=== PATIENT | male | born 1940 | race Caucasian/White ===

== ENCOUNTER 2018-01-28 18:55 | Observation (INO) | payer OTHER ==
[~2018-01-28] VITALS: Ht 162.6 cm; Wt 101.9 kg
--- NOTE | 2018-01-28 19:08 | ED NEURO DEFICIT/STROKE ---
History of Present Illness General Chief Complaint: Neuro Symptoms/ Deficit Stated Complaint: NEUOR DEFICITS Source: patient, family Exam Limitations: no limitations Vital Signs & Intake/Output Vital Signs & Intake/Output Vital Signs Date Time Temp Pulse Resp B/P B/P Pulse O2 O2 Flow FiO2 Mean Ox Delivery Rate 01/28 1906 98.6 66 18 130/74 97 Room Air Allergies Coded Allergies: No Known Allergies (01/28/18) Reconcile Medications Atorvastatin Calcium 20 MG TABLET 1 TAB PO DAILY CARDIAC (Reported) Clopidogrel Bisulfate (Clopidogrel) 75 MG TABLET 1 TAB PO DAILY BLOOD THINNER (Reported) Furosemide 40 MG TABLET 1 TAB PO DAILY CHF (Reported) Gabapentin 300 MG CAPSULE 1 CAP PO TID NEUROPATHY (Reported) Lisinopril 10 MG TABLET 1 TAB PO DAILY HTN (Reported) Nebivolol HCl (Bystolic) 5 MG TABLET 1 TAB PO DAILY CARDIAC (Reported) Prednisone 5 MG TABLET 1 TAB PO DAILY ARTHRITIS (Reported) Triage Note: 78 YO MALE TO TRIAGE WITH , PER SHE LAST SAW THE PATIENT AT BASELINE AROUND 5PM. STATES WHEN SHE SAW HIM AT 5 HE WAS CONFUSED AND "MUMLING HIS WORDS". PT NOTED WITH L SIDED FACIAL DROOP. PT IMMEDICATLY TO ER ROOM 3 FROM TRIAGE AND MD TO BEDSIDE. PT ALERT BUT UNSURE WHERE HE IS. DENIES PAIN. Triage Nurses Notes Reviewed? yes Onset: Gradual Duration: hour(s): Timing: recent history Severity: moderate Impaired Ability: difficult to speak Baseline: alert, oriented x 3 Associated Symptoms: difficulty with word finding, garbled speech HPI: 78 yo gentleman h/o cabg, on plavix, presents with 1 hour episode of garbled speech and word finding difficulty that began at approximately 5:15pm. His symptoms resolved prior to arrival to the ED. His notes, "We were all at the dinner table together... suddenly he just couldn't talk... he couldn't find the words." He was slightly confused, but did not seem to have any focal weakness. His symptoms self resolved prior to arrival. Past History Travel History Traveled to [place] past 21 day No Medical History Any Pertinent Medical History? see below for history Cardiovascular: CAD, hypertension Respiratory: NONE Surgical History Surgical History: CABG, knee replacements Psychosocial History What is your primary language Danish Family History Hx Contributory? No Review of Systems Review of Systems Constitutional: Reports: no symptoms. EENTM: Reports: no symptoms. Respiratory: Reports: no symptoms. Cardiovascular: Reports: no symptoms. GI: Reports: no symptoms. Genitourinary: Reports: no symptoms. Musculoskeletal: Reports: no symptoms. Skin: Reports: no symptoms. Neurological/Psychological: Reports: no symptoms. Hematologic/Endocrine: Reports: no symptoms. Immunologic/Allergic: Reports: no symptoms. All Other Systems: Reviewed and Negative Physical Exam Physical Exam General Appearance: well developed/nourished, no apparent distress Head: atraumatic, normal appearance Eyes: Bilateral: normal appearance, PERRL, EOMI. Ears, Nose, Throat: normal ENT inspection, moist mucous membrane Neck: normal inspection, supple, full range of motion Respiratory: normal breath sounds, chest non-tender, no respiratory distress, quiet respiration, lungs clear Cardiovascular: regular rate/rhythm Gastrointestinal: normal bowel sounds, soft, non-tender, no organomegaly Back: normal inspection, normal range of motion Extremities: normal range of motion Psychiatric: awake, alert, oriented x 3 Cranial Nerves: normal hearing, normal speech, PERRL Coordination/Gait: normal finger to nose Motor/Sensory: no motor/sensory deficits Reflexes: 1+: bicep (R), bicep (L), knee (R), knee (L). Skin: intact, normal color, warm/dry Core Measures CVA/TIA Diagnosis: Yes NIH Stroke Scale NIH Stroke Scale Response Value Level of Consciousness alert 0 LOC Questions answers both correctly 0 LOC Commands obeys both correctly 0 Best Gaze normal 0 Visual Johnston no visual loss 0 Facial Paresis normal 0 Motor Arm - Left no drift 0 Motor Arm - Right no drift 0 Motor Leg - Left no drift 0 Motor Leg - Right no drift 0 Limb Ataxia no ataxia 0 Sensory normal 0 Best Language no aphasia 0 Dysarthria normal articulation 0 Extinction and Inattention no neglect 0 Total 0 Sepsis Present: No Sepsis Focused Exam Completed? No Progress Differential Diagnosis: intracranial Hem., stroke, subarachnoid Hem. Plan of Care: Orders Procedure Date/time Status Clear Liquid Diet 01/29 B Active Saline Lock 01/28 2141 Active Misc Message 01/28 2141 Active ED Holding Orders 01/28 2141 Active Vital Signs 01/28 2141 Active Code Status 01/[address] in observation 01/29 2140 Active URINALYSIS 01/28 1903 Active TROPONIN LEVEL 01/28 1903 Complete PARTIAL THROMBOPLASTIN TIME 01/28 1903 Complete PROTHROMBIN TIME 01/28 1903 Complete COMPREHENSIVE METABOLIC PANEL 01/28 1903 Complete CBC WITHOUT DIFFERENTIAL 01/28 1903 Complete EKG 01/28 1903 Active Laboratory Tests 01/28/181919: Anion Gap 11, Estimated GFR 59 L, BUN/Creatinine Ratio 29.2 H, Glucose 102 H, Calcium 9.6, Total Bilirubin 0.3, AST 17, ALT 25, Alkaline Phosphatase 57, Troponin I < 0.01, Total Protein 6.8, Albumin 4.1, Globulin 2.7, Albumin/ Globulin Ratio 1.5, PT 10.9, INR 1.00, APTT 30, CBC w Diff NO MAN DIFF REQ, RBC 4.05 L, MCV 99.6 H, MCH 33.3 H, MCHC 33.4, RDW 14.5, MPV 8.3, Gran % 61.8, Lymphocytes % 27.1, Monocytes % 8.9, Eosinophils % 1.4, Basophils % 0.8, Absolute Granulocytes 4.9, Absolute Lymphocytes 2.2, Absolute Monocytes 0.7 H, Absolute Eosinophils 0.1, Absolute Basophils 0.1 Diagnostic Imaging: Viewed by Me: Radiology Read, CT Scan. Discussed w/RAD: Radiology Read, CT Scan. Radiology Impression: PATIENT: DEANDRA BOWIE PRESENT AGE: 78 PATIENT ACCOUNT NO: [id number] : 40 LOCATION: [facility] ORDERING PHYSICIAN: Dhaval ALDRICH SERVICE DATE: 01/28/18 EXAM TYPE: CAT - CT HEAD WO IV CONTRAST EXAMINATION: CT HEAD WITHOUT CONTRAST CLINICAL INFORMATION: Neurological deficit. COMPARISON: None TECHNIQUE: Contiguous axial imaging was performed from the skull base to vertex without intravenous administration of contrast. FINDINGS: There is no evidence of acute intracranial hemorrhage or territorial infarction. No abnormal mass effect or midline shift is seen. Espitia- to-white matter differentiation is well preserved. No extra-axial fluid collections are identified. Mild cerebral volume loss, with sulcal and ventricular prominence. Mild patchy deep white matter hypodensities, probably reflecting chronic micro-ischemic changes. No acute calvarial abnormality. The mastoid air cells and visualized portions of the paranasal sinuses are well aerated. IMPRESSION: 1. No CT evidence of acute intracranial pathology. Further evaluation with MRI as clinically warranted. 2. Mild cerebral volume loss, with chronic microangiopathic ischemic change. Findings conveyed to Dr. Quiroz at 7:44 PM. DICTATED BY: Trevon Collins MD DATE/TIME DICTATED:01/28/181932 HAZMAT TANKER DRIVER:JEISON DATE/TIME TRANSCRIBED:01/28/181932 CONFIDENTIAL, DO NOT COPY WITHOUT APPROPRIATE AUTHORIZATION. <Electronically signed in Other Vendor System> SIGNED BY: Trevon Collins MD 01/28/181952 CXR Impression: PATIENT: DEANDRA BOWIE PRESENT AGE: 78 PATIENT ACCOUNT NO: [id number] : 40 LOCATION: [facility] ORDERING PHYSICIAN: Jhonny Hilton MD SERVICE DATE: 01/28/18 EXAM TYPE: RAD - XRY- PORTABLE CHEST XRAY EXAMINATION: XR CHEST PORTABLE CLINICAL INFORMATION: TIA. COMPARISON: 12/07/2017 TECHNIQUE: Portable frontal view of the chest was obtained. FINDINGS: Low lung volumes. Mild prominence of the cardiac and mediastinal silhouette, likely related to the low lung volumes. Status post sternotomy. Monitoring leads project of the chest. There is bronchovascular crowding in the lung bases. Mild central vascular prominence without overt pulmonary edema. No focal consolidation, significant pleural effusion is seen. IMPRESSION: Low lung volumes. Bronchovascular crowding. No confluent airspace disease. DICTATED BY: Trevon Collins MD DATE/TIME DICTATED:01/28/181952 HAZMAT TANKER DRIVER:JEISON DATE/TIME TRANSCRIBED:01/28/181952 CONFIDENTIAL, DO NOT COPY WITHOUT APPROPRIATE AUTHORIZATION. <Electronically signed in Other Vendor System> SIGNED BY: Trevon Collins MD 01/28/182031 Initial ED EKst av block rate 60 Departure Departure Disposition: STILL A PATIENT Condition: Stable Clinical Impression Primary Impression: TIA (transient ischemic attack) Referrals: Aristeo Leigh DO (PCP/Family) Departure Forms: Customer Survey General Discharge Information Comments 01/28/18, 19:15.... Pt seen immediately upon arrival to a room. pt with benign exam upon presentation. stroke alert called given his symptoms prior to presentation. Discussed with dr. watts, neurologist. No need for thrombolytics since his symptoms have resolved. Observation Note Spoke With: Joe Burleson MDlázaro Place Patient In: Non-ED OBS Care Area Rationale for Observation: My rational for observation is as follows . PT WITH SYMPTOMS OF TIA, PT TO BE PLACED IN TELE FOR SERIAL NEURO CHECKS...
[2018-01-28 19:34] LABS: ABSOLUTE BASOPHIL COUNT 0.1 /CUMM (0.0-0.2); ABSOLUTE EOSINOPHIL COUNT 0.1 /CUMM (0.0-0.7); ABSOLUTE GRANULOCYTE CT 4.9 /CUMM (1.4-6.5); ABSOLUTE LYMPH COUNT 2.2 /CUMM (1.2-3.4); ABSOLUTE MONOCYTE COUNT 0.7 /CUMM (0.10-0.60); BASOPHIL % 0.8 % (0.0-2.0); EOSINOPHIL % 1.4 % (0-5); GRANULOCYTE % 61.8 % (42.2-75.2); HEMATOCRIT 40.3 % (42-52); MEAN CORPUSCULAR HGB 33.3 PG (27.0-31.0); MEAN CORPUSCULAR HGB CONC 33.4 G/DL (33.0-37.0); MEAN CORPUSCULAR VOLUME 99.6 FL (80.0-94.0); MEAN PLATELET VOLUME 8.3 FL (7.4-10.4); PLATELET COUNT 272 /CUMM (130-400); RBC DISTRIBUTION WIDTH 14.5 % (11.5-14.5); RED BLOOD CELL CT 4.05 /CUMM (4.70-6.10)
[2018-01-28 19:53] LABS: PT 10.9 SEC (9.4-12.5); PTT 30 SEC (25-37)
--- NOTE | 2018-01-28 19:53 | CT SCAN REPORT ---
EXAMINATION: CT HEAD WITHOUT CONTRAST CLINICAL INFORMATION: Neurological deficit. COMPARISON: None TECHNIQUE: Contiguous axial imaging was performed from the skull base to vertex without intravenous administration of contrast. FINDINGS: There is no evidence of acute intracranial hemorrhage or territorial infarction. No abnormal mass effect or midline shift is seen. Hnke-ut-pyiha matter differentiation is well preserved. No extra-axial fluid collections are identified. Mild cerebral volume loss, with sulcal and ventricular prominence. Mild patchy deep white matter hypodensities, probably reflecting chronic micro-ischemic changes. No acute calvarial abnormality. The mastoid air cells and visualized portions of the paranasal sinuses are well aerated. IMPRESSION: 1. No CT evidence of acute intracranial pathology. Further evaluation with MRI as clinically warranted. 2. Mild cerebral volume loss, with chronic microangiopathic ischemic change. Findings conveyed to Dr. Quiroz at 7:44 PM.
[2018-01-28] MEDS ORDERED: CLOPIDOGREL75 M1 PO (20:15)
[2018-01-28] MEDS ORDERED: LISINOPRIL10 M1 PO (20:15)
[2018-01-28] MEDS ORDERED: GABAPENTIN300 M2 PO (20:16)
[2018-01-28] MEDS ORDERED: BYSTOLIC5 M1 PO (20:16)
[2018-01-28] MEDS ORDERED: ATORVASTATIN CA20 M1 PO (20:17)
[2018-01-28] MEDS ORDERED: PREDNISONE5 M1 PO (20:17)
[2018-01-28] MEDS ORDERED: FUROSEMIDE40 M1 PO (20:18)
--- NOTE | 2018-01-28 20:32 | RADIOLOGY REPORT ---
EXAMINATION: XR CHEST PORTABLE CLINICAL INFORMATION: TIA. COMPARISON: 12/07/2017 TECHNIQUE: Portable frontal view of the chest was obtained. FINDINGS: Low lung volumes. Mild prominence of the cardiac and mediastinal silhouette, likely related to the low lung volumes. Status post sternotomy. Monitoring leads project of the chest. There is bronchovascular crowding in the lung bases. Mild central vascular prominence without overt pulmonary edema. No focal consolidation, significant pleural effusion is seen. IMPRESSION: Low lung volumes. Bronchovascular crowding. No confluent airspace disease.
--- NOTE | 2018-01-28 21:34 | History & Physical ---
See Addendum Griffin HUMPHREY,[facility] 01/28/18 3760: General Information and HPI MD Statement: I have seen and personally examined DEANDRA BOWIE and documented this H&P. The patient is a 78 year old M who presented with a patient stated chief complaint of [word finding difficulty per family]. Source of Information: patient, family Exam Limitations: not alert/orientated, confusion History of Present Illness: 78 year old M with pmhx of CAD s/p 3 vessel cabg, htn, b/l knee replacements, bladder cancer, chronic back pain 2/2 traumatic fall and osteoarthiritis presenting for word finding difficulty per the patients . The states that they left a event at 230 (time she left) / 330pm (time he left). She states he was fine when he left at that time. They then both went to the same chritopractor but did not see each other as they were in seperated rooms. The states that she got home first and then her came home around 5: 30ish. She then asked him what he wanted for dinner and she noticed he was unable to formulate a full sentence and was having word finding difficulty. The was concerned regarding possible stroke but states that her and her daughter had the patient lifted his arm and did not noticed any facial droop or weakness. She does state that within the past couple of months his mentation has been slower and that he also has been walking slower. When I asked the patient regarding what happened, he states that was sent to the ED because he could not write, could not make sense, and had word finding difficulty to the family. He denies any confusion, weakness, headaches, vision changes, fevers, chills, shortness of breath, ABD pain or changes in elimination. Allergies/Medications Allergies: Coded Allergies: No Known Allergies (01/28/18) Past History Travel History Traveled to [place] past 21 day No Medical History Neurological: NONE EENT: hearing loss Cardiovascular: CAD, hypertension Respiratory: NONE Gastrointestinal: NONE Hepatic: NONE Musculoskeletal: BACK INJURY Cancer(s): bladder cancer Surgical History Surgical History: CABG, knee replacements Past Family/Social History Psychosocial History ETOH Use: occasional use Illicit Drug Use: denies illicit drug use Review of Systems Review of Systems Constitutional: Reports: see HPI. Cardiovascular: Reports: no symptoms. Respiratory: Reports: no symptoms. GI: Reports: no symptoms. Genitourinary: Reports: no symptoms. Musculoskeletal: Reports: no symptoms. Exam & Diagnostic Data Last 24 Hrs of Vital Signs/I&O Vital Signs Date Time Temp Pulse Resp B/P B/P Pulse O2 O2 Flow FiO2 Mean Ox Delivery Rate 01/29 1034 127/72 / 0955 127/72 / 0722 97.9 57 22 127/72 96 Room Air 01/29 0505 95.8 62 20 109/60 97 Room Air 01/29 0034 97.0 52 20 144/68 99 Room Air 01/28 2255 96.6 50 18 120/64 94 Room Air 01/28 1906 98.6 66 18 130/74 97 Room Air Physical Exam General Appearance patient very aggrivated by exam. did not want to complete exam., AOx2 with very delayed responses to questions. appears to be very hard of hearing Cardiovascular Regular Rate, Normal S1, Normal S2 Lungs Clear to Auscultation, Normal Air Movement Abdomen Normal Bowel Sounds, Soft, No Tenderness Neurological misses finger far left/right when attempting finger to nose Extremities 5/5 UE and LE strength Vascular 2+ radial pulses Last 24 Hrs of Labs/Tony: Laboratory Tests 01/29/18 0934: Troponin I < 0.01 01/29/18 0505: Anion Gap 9, Estimated GFR > 60, BUN/Creatinine Ratio 32.0 H, Troponin I < 0.01 , Triglycerides 193 H, Cholesterol 124, LDL Cholesterol, Calc 54 L, HDL Cholesterol 32 L, Cholesterol/HDL Ratio 4, CBC w Diff NO MAN DIFF REQ, RBC 4.01 L, MCV 99.9 H, MCH 32.9 H, MCHC 33.0, RDW 14.8 H, MPV 8.1, Gran % 63.4, Lymphocytes % 27.4, Monocytes % 7.3, Eosinophils % 1.5, Basophils % 0.4, Absolute Granulocytes 5.9, Absolute Lymphocytes 2.5, Absolute Monocytes 0.7 H, Absolute Eosinophils 0.1, Absolute Basophils 0 01/29/18 0457: Troponin I Cancelled 01/29/18 0028: Troponin I < 0.01 01/29/18 0020: Urine Color YEL, Urine Clarity CLDY H, Urine pH 7.0, Ur Specific Crowley 1.015, Urine Protein 30 H, Urine Ketones NEG, Urine Nitrite POS H, Urine Bilirubin NEG, Urine Urobilinogen 0.2, Ur Leukocyte Esterase LARGE H, Ur Microscopic SEDIMENT EXAMINED, Urine RBC 5-10 H, Urine WBC > 75 H, Urine Bacteria MANY H, Urine Hemoglobin SMALL H, Urine Glucose NEG 01/28/18 1920: Anion Gap 11, Estimated GFR 59 L, BUN/Creatinine Ratio 29.2 H, Glucose 102 H, Calcium 9.6, Total Bilirubin 0.3, AST 17, ALT 25, Alkaline Phosphatase 57, Troponin I < 0.01, Total Protein 6.8, Albumin 4.1, Globulin 2.7, Albumin/ Globulin Ratio 1.5, PT 10.9, INR 1.00, APTT 30, CBC w Diff NO MAN DIFF REQ, RBC 4.05 L, MCV 99.6 H, MCH 33.3 H, MCHC 33.4, RDW 14.5, MPV 8.3, Gran % 61.8, Lymphocytes % 27.1, Monocytes % 8.9, Eosinophils % 1.4, Basophils % 0.8, Absolute Granulocytes 4.9, Absolute Lymphocytes 2.2, Absolute Monocytes 0.7 H, Absolute Eosinophils 0.1, Absolute Basophils 0.1 Microbiology 01/29 0020 URINE ROUT: Urine Culture - RECD Assessment/Plan Assessment: A: 78 year old M with pmhx of CAD s/p 3 vessel cabg, htn, b/l knee replacements, bladder cancer, chronic back pain 2/2 traumatic fall and osteoarthiritis presenting for word finding difficulty most likely 2/2 to TIA vs stroke P: #expressive aphasia 2/2 to TIA vs stroke BP 130/74 trops <.01 x3 triglycerides 193, cholesterol 124, LDL 54, HDL [address] evidence of acute intracranial pathology. Further evaluation with MRI as clinically warranted. 2. Mild cerebral volume loss, with chronic microangiopathic ischemic change. Head/neck CTA: 1. Atherosclerotic disease at the origin of the right internal carotid artery resulting in greater than 70% stenosis. 2. Atherosclerotic disease at the origin of the left internal carotid artery which appears to result in approximately 30% luminal narrowing. 3. No central intracranial vascular occlusion identified. 4. Degenerative changes of the cervical spine. -neuro consult -consider MRI brain -cardiology consult -echo -r/o ACS with ekg and trops -q4 neurochecks -aspirin, plavix, high dose statin -PT/OT/ST - #Carotid stenosis -consider vascular consult #HTN -cont lisinopril, lasix, bysytolic #RA -cont prednisone #chronic back pain 300mg x2 in AM, 1x afternoon and 1x PM #DVT prophylaxis with heparin SC #FULL CODE As Ranked By This Provider Problem List: 1. TIA (transient ischemic attack) Core Measures/Misc (08/12) Acute Coronary Syndrome ACS Diagnosis: No Congestive Heart Failure Congestive Heart Failure Diagnosis No Cerebrovascular Accident CVA/TIA Diagnosis: Yes NIH Stroke Scale: Total 4 Date Last Known Well: 01/28/18 Time Last Known Well: 1729 Symptom Start Date: 01/28/18 Symptom Start Time: 1729 Swallow Evaluation Pass (passed bedside) Current/Past Hx AFib/AFlutter No VTE (View Protocol) VTE Risk Factors Acute Medical Illness No Mechanical VTE Prophylaxis d/t Other No VTE Pharm Prophylaxis d/t NA PharmProphylax ordered Sepsis (View protocol) Sepsis Present: No Nanda Chaney 01/28/18 8968: General Information and HPI MD Statement: I have seen and personally examined DEANDRA BOWIE and documented this H&P. The patient is a 78 year old M who presented with a patient stated chief complaint of []. Allergies/Medications Home Med list Aspirin (Adult Aspirin Regimen) 81 MG TABLET.DR 1 TAB PO DAILY heart health ( Reported) Atorvastatin Calcium 20 MG TABLET 1 TAB PO DAILY CARDIAC (Reported) Clopidogrel Bisulfate (Clopidogrel) 75 MG TABLET 1 TAB PO DAILY BLOOD THINNER (Reported) Furosemide 40 MG TABLET 1 TAB PO DAILY CHF (Reported) Gabapentin 300 MG CAPSULE 1 CAP PO TID NEUROPATHY (Reported) Lisinopril 10 MG TABLET 1 TAB PO DAILY HTN (Reported) Nebivolol HCl (Bystolic) 5 MG TABLET 1 TAB PO DAILY CARDIAC (Reported) Prednisone 5 MG TABLET 1 TAB PO DAILY ARTHRITIS (Reported) Resident Review Statement Resident Statement: examined this patient, discussed with photography intern, agreed with photography intern Other Findings: Mr Bowie is a 78 year old man w/ a PMHx of HTN, CHF, back pain on chronic pain meds who was brought in w/ a chief concern of increased confusion, word finding difficulty that began around 5 PM a few hours prior to admission. Most of the history of was obtained from the family. At the time of admission, vitals- temperature 98.6, pulse rate 66, respiration 18, blood pressure 130/74, pulse ox 97% on room air. Had trouble performing her neurological examination, as the patient was not cooperative. Alert and oriented 3, slow to respond. No neurological deficits noted. Heart and lung exam is within normal limits. Gait within normal limits, cerebellar function test was limited. Initial exam was non-conclusive as the pt was not cooperating with the neurological examination. Etiology in this case was likely thought to be due to transient ischemic attack, however cerebrovascular accident needs to be ruled out. Likely cardioembolic in his case, metabolic causes need to be ruled out. Problem list: 1. TIA, rule out CVA 2. Encephalopathy likely metablolic 2. History of coronary artery disease 3. Hypertension Plan: 1. TIA- -High intensity statin, aspirin, Plavix. -CTA head, neck to be obtained to rule out any embolism/thrombus - MRI in the a.m. -Neurology consult. -Permissive hypertension. -Neuro checks every 4 hourly -Serial EKG, troponins. -Other metabolic causes such as UTI, dehydration need to be considered. -Check UA, and UC. If abnormal, would start ceftriaxone. 2. History of coronary artery disease -Continue home dose of beta krystyna, aspirin, Plavix. -Cardiac consult in the a.m. 3. Hypertension- -Continue by stolid, lisinopril 4. Pain management -History of chronic use of prednisone, which should be continued. Likely rheumatoid arthritis. More history to be obtained from the primary care provider. - Gabapentin at home dose. Housekeeping- -DVT prophylaxis subcutaneous heparin Full code Swallow eval, PT/OT in the a.m. Past bedside swallow eval. Benjy HUMPHREY, [facility] 01/29/18 0731: Attending MD Review Statement Attending Statement Attending MD Statement: examined this patient, discuss w/resident/PA/COMMERCIAL DRONE SOFTWARE DEVELOPER, agreed w/resident/PA/COMMERCIAL DRONE SOFTWARE DEVELOPER, discussed with family, reviewed images, amended to note Attending Assessment/Plan: 78 yo M with h/o HTN, CAD s/p CABG, CHF, chronic back pain, who was his normal self until 5 pm, after which noted patient was confused, was mumbling words and had word finding difficulty. His symptoms were resolving on ER arrival and as per ER physician symptoms had resolved at the time of his evaluation. On our evaluation, patient appeared confused, kept repeating tomorrow is a better day , leave me alone. He was slow to respond, answered a few questions appropriately and had difficulty understanding some questions. On examination, speech is clear but lot of repetitions, was not able to recall words, no cranial nerve deficits, he would not follow commands to track finger, was unable to do the finger-nose test (unclear if due to lack of understanding), power 5/5, sensation roughly intact, plantars downgoing, reflexes 2+. Gait normal, on romberg's test he was swaying to the back. I spoke with his Sharron and explained to her my concern for recurrent TIA/ stroke and need for CTA. and daughter came in at midnight, we re-evaluated patient in his presence, he was slow to respond but he was now oriented x 3. says that he can get obstinate and not respond at times. He has no underlying dementia. He passed bedside swallow test. Vitals stable. Labs: Na 135, BUN 35, creat 1.2, glucose 102, trop neg. UA cloudy , nitrite positive, large LE, WBC > 75, RBC 5-10, many bacteria. Head CT: no acute pathology, mild cerebral volume loss, chronic microangiopathic ischemic changes. CXR: low lung volumes, bronchovascular crowding, no airspace disease. CTA neck/ head: atherosclerotic disease at origin of right internal carotid artery causing greater than 70% stenosis, and 30% narrowing at left internal carotid artery. No vascular occlusion. EKG: sinus rhythm, first degree AV block. Assessment and plan: 1. Encephalopathy, confusion, word-finding difficulty 2. TIA, possible acute stroke 3. Right ICA >70% stenosis 4. UTI unclear if he has urinary symptoms, but his altered mentation could be attributed to this. On review, he has been treated for Ecoli UTI twice this year. 5. History of CAD and HTN - 23 hour observation on Telemetry - Neurochecks Q4 - Fall precautions - Aspirin, plavix, high dose statin - Neuro consult and Cardio consult (patient follows with Dr. Jewell) - Consider MRI brain - Rule out ACS, obtain echo - PT/OT/ speech- swallow eval - No need to repeat carotid dopplers - Vascular consult for carotid artery stenosis - Hold gabapentin for now - Resume lisinopril, lasix and bystolic in AM - Panculture, IV ceftriaxone for now - Continue prednisone patient taking chronically for RA DVT ppx Hep SC. Full code. Observation Initial Note - I have personally examined DEANDRA BOWIE on 01/29/18 at 0731. The disposition of DEANDRA BOWIE is uncertain at this time and before a determination can be made, he requires a period of observation for the following reasons [TIA]
--- NOTE | 2018-01-29 00:50 | CT SCAN REPORT ---
EXAMINATION: CT ANGIOGRAM NECK AND HEAD CLINICAL INFORMATION: Expressive aphasia COMPARISON: Noncontrast head CT 01/28/2018 TECHNIQUE: Initial noncontrast head CT was performed. Test bolus sequences followed by intravenous administration 101 mL of Optiray 350. Helical imaging was performed in the axial plane from the thoracic inlet to the skull vertex. Delayed postcontrast imaging of the head was also performed. The data was processed at the nuclear medicine technologist's workstation for generation of MIP sequences. Angled MIPs and volume rendered reformatted images were also generated at an offline 3D workstation. Stenoses are assessed in accordance with NASCET criteria unless otherwise indicated. DLP: 473.99 mGy-cm FINDINGS: CTA neck/head: There is a classic 3 vessel branching pattern of the aortic arch. Normal appearance of the visualized aortic arch and proximal branches. No evidence of stenosis at the branch origins. There is mixed calcified and noncalcified plaque at the right common carotid artery bifurcation which appears to result in greater than 70% stenosis at the origin of the internal carotid artery. The remainder of the cervical and intracranial right internal carotid artery is patent. There is calcification at the origin of the left internal carotid artery which appears resulting in approximately 30% luminal narrowing. The remainder of the cervical and intracranial left internal carotid artery is patent. Normal appearance of the anterior cerebral and middle cerebral arteries without focal occlusion or stenosis. Normal anterior communicating artery. Normal arborization of the middle cerebral arteries. Both vertebral arteries are widely patent throughout their extracranial cervical course. Normal appearance of the intradural vertebral arteries. Normal appearance of the basilar artery and posterior cerebral arteries. CT Head: Assessment for intracranial hemorrhage is limited in the presence of intravenous contrast. No intracranial mass, extra-axial collection, or midline shift. The fairchild-white matter differentiation is preserved. No pathologic intra-axial enhancement or regional oligemia. No hydrocephalus. There is mild periventricular white matter hypoattenuation consistent with chronic small vessel ischemic disease. Mild volume loss is noted. There is partial opacification of the left sphenoid sinus. The mastoid air cells are well-aerated. CT Neck: The thyroid gland appears grossly unremarkable. No significant cervical adenopathy is seen. There are degenerative changes of the mid to lower cervical spine with disc space narrowing and endplate osteophyte formation. There is also degenerative change at the atlantodens articulation. There is grade 1 anterolisthesis of C2 on C3. Upper Chest: No acute abnormalities in the visualized lung apices or upper mediastinum. IMPRESSION: 1. Atherosclerotic disease at the origin of the right internal carotid artery resulting in greater than 70% stenosis. 2. Atherosclerotic disease at the origin of the left internal carotid artery which appears to result in approximately 30% luminal narrowing. 3. No central intracranial vascular occlusion identified. 4. Degenerative changes of the cervical spine.
[2018-01-29 05:26] LABS: ABSOLUTE BASOPHIL COUNT 0 /CUMM (0.0-0.2); ABSOLUTE EOSINOPHIL COUNT 0.1 /CUMM (0.0-0.7); ABSOLUTE GRANULOCYTE CT 5.9 /CUMM (1.4-6.5); ABSOLUTE LYMPH COUNT 2.5 /CUMM (1.2-3.4); ABSOLUTE MONOCYTE COUNT 0.7 /CUMM (0.10-0.60); BASOPHIL % 0.4 % (0.0-2.0); EOSINOPHIL % 1.5 % (0-5); GRANULOCYTE % 63.4 % (42.2-75.2); HEMATOCRIT 40.1 % (42-52); MEAN CORPUSCULAR HGB 32.9 PG (27.0-31.0); MEAN CORPUSCULAR VOLUME 99.9 FL (80.0-94.0); MEAN PLATELET VOLUME 8.1 FL (7.4-10.4); PLATELET COUNT 249 /CUMM (130-400); RBC DISTRIBUTION WIDTH 14.8 % (11.5-14.5); RED BLOOD CELL CT 4.01 /CUMM (4.70-6.10); WHITE BLOOD CELL COUNT 9.3 /CUMM (4.8-10.8)
[2018-01-29] MEDS ORDERED: ADULT ASPIRIN R81 MG PO (08:01)
--- NOTE | 2018-01-29 08:35 | PN- Housestaff ---
Raji Quick 01/29/18 0835: Subjective Follow-up For: ?TIA Hypoactive delirium Subjective: Slow to respond to questions, but engages in meaningful conversation. Offers no complaints. No fevers chills, urinary frequency. History of bladder cancer, reported no surgical intervention or chemotherapy. Review of Systems Constitutional: Reports: see HPI. Objective Last 24 Hrs of Vital Signs/I&O Vital Signs Date Time Temp Pulse Resp B/P B/P Pulse O2 O2 Flow FiO2 Mean Ox Delivery Rate 01/29 1034 127/72 / 0955 127/72 03/ 0722 97.9 57 22 127/72 96 Room Air 03/ 0505 95.8 62 20 109/60 97 Room Air / 0034 97.0 52 20 144/68 99 Room Air / 2255 96.6 50 18 120/64 94 Room Air 03/ 1906 98.6 66 18 130/74 97 Room Air Physical Exam General Appearance: Alert, Oriented X3, Cooperative, No Acute Distress Cardiovascular: Regular Rate, Normal S1, Normal S2 Lungs: Clear to Auscultation, Normal Air Movement Abdomen: Normal Bowel Sounds, Soft Extremities: No Clubbing, No Cyanosis Current Medications: Current Medications Sig/Macey Start time Last Medication Dose Route Stop Time Status Admin Aspirin 81 MG DAILY 01/29 1000 AC 01/29 PO 0955 Aspirin 0 .STK-MED ONE 01/29 2128 DC PO Aspirin 0 .STK-MED ONE 01/28 2126 DC PO Aspirin 325 MG ONCE ONE 01/28 2115 DC 01/28 PO 01/28 Atorvastatin Calcium 80 MG ONCE ONE 01/29 0100 DC 01/29 PO 01/29 0101 0110 Atorvastatin Calcium 80 MG 1700 01/28 2330 AC PO Ceftriaxone Sodium 0 .STK-MED ONE 01/29 0952 DC .ROUTE Ceftriaxone Sodium 1,000 MG DAILY 01/30 800 DC IV Ceftriaxone Sodium 1,000 MG 0800 01/29 0800 AC 01/29 IV 0955 Clopidogrel Bisulfate 75 MG DAILY 01/29 1000 AC 01/29 PO 0955 Furosemide 40 MG DAILY 01/29 1000 AC 01/29 PO 0955 Gabapentin 300 MG TID 01/29 1000 AC 01/29 PO 0955 Heparin Sodium 5,000 UNIT Q8 01/29 600 AC 01/29 (Porcine) SC 0606 Lisinopril 10 MG DAILY 01/29 1000 AC 01/29 PO 0955 Nebivolol 5 MG DAILY 01/29 1000 AC 01/29 PO 1034 Prednisone 5 MG DAILY 01/29 1000 AC 01/29 PO 0955 Last 24 Hrs of Lab/Tony Results Last 24 Hrs of Labs/Mics: Laboratory Tests 01/29/18 0934: Troponin I < 0.01 01/29/18 0505: Anion Gap 9, Estimated GFR > 60, BUN/Creatinine Ratio 32.0 H, Troponin I < 0.01 , Triglycerides 193 H, Cholesterol 124, LDL Cholesterol, Calc 54 L, HDL Cholesterol 32 L, Cholesterol/HDL Ratio 4, CBC w Diff NO MAN DIFF REQ, RBC 4.01 L, MCV 99.9 H, MCH 32.9 H, MCHC 33.0, RDW 14.8 H, MPV 8.1, Gran % 63.4, Lymphocytes % 27.4, Monocytes % 7.3, Eosinophils % 1.5, Basophils % 0.4, Absolute Granulocytes 5.9, Absolute Lymphocytes 2.5, Absolute Monocytes 0.7 H, Absolute Eosinophils 0.1, Absolute Basophils 0 01/29/18 0457: Troponin I Cancelled 01/29/18 0028: Troponin I < 0.01 01/29/18 0020: Urine Color YEL, Urine Clarity CLDY H, Urine pH 7.0, Ur Specific [place] 1.015, Urine Protein 30 H, Urine Ketones NEG, Urine Nitrite POS H, Urine Bilirubin NEG, Urine Urobilinogen 0.2, Ur Leukocyte Esterase LARGE H, Ur Microscopic SEDIMENT EXAMINED, Urine RBC 5-10 H, Urine WBC > 75 H, Urine Bacteria MANY H, Urine Hemoglobin SMALL H, Urine Glucose NEG 01/28/18 1920: Anion Gap 11, Estimated GFR 59 L, BUN/Creatinine Ratio 29.2 H, Glucose 102 H, Calcium 9.6, Total Bilirubin 0.3, AST 17, ALT 25, Alkaline Phosphatase 57, Troponin I < 0.01, Total Protein 6.8, Albumin 4.1, Globulin 2.7, Albumin/ Globulin Ratio 1.5, PT 10.9, INR 1.00, APTT 30, CBC w Diff NO MAN DIFF REQ, RBC 4.05 L, MCV 99.6 H, MCH 33.3 H, MCHC 33.4, RDW 14.5, MPV 8.3, Gran % 61.8, Lymphocytes % 27.1, Monocytes % 8.9, Eosinophils % 1.4, Basophils % 0.8, Absolute Granulocytes 4.9, Absolute Lymphocytes 2.2, Absolute Monocytes 0.7 H, Absolute Eosinophils 0.1, Absolute Basophils 0.1 Microbiology 01/29 002 URINE ROUT: Urine Culture - RECD Assessment/Plan Assessment: 78-year-old gentleman with history of hypertension, coronary artery disease status post CABG, CHF, unclear if there exists a history of dementia was brought in after the noted the patient to be confused and reported word finding difficulty. There was concern for cerebrovascular accident, a subsequent head CT showed chronic microangiopathic ischemic changes and no vascular occlusion on the CTA neck and head. Of note, patient has had recurrent urinary tract infections treated with amoxicillin and Bactrim in the recent past. This morning, patient was conversant, but slow to respond. Given family's explanation of his symptoms, this patient with lethargy and sedation with slow response to questions and little spontaneous movements, hypoactive delirium may be a possibility. Epidemiologically, elderly man as well as multiple comorbidities are major risk factors. Also to be noted patient's chronic microangiopathic ischemic changes are contributory albeit history of underlying dementia. Additionally, long-term steroid use may contribute and is a potentially modifiable risk factor. Plan: Continue observation on telemetry. Aspirin Plavix and statin as before. Echo pending. MRI ordered, extend obs. Continue neuro checks. Will avoid any sedative hypnotics, anticholinergics. Hydration, treat dehdration. Hold off antibiotics. Will confirm if patient has any sensory impairment (hearing). Neuro Cardio consults placed. Full code DVT proph CHF diet Problem List: 1. TIA (transient ischemic attack) Pain Ratin Pain Location: None Pain Goal: Remain pain free Pain Plan: PRN Tylenol Tomorrow's Labs & Rationales: UTI Rebekah Pierce MD 01/29/18 1345: Attending MD Review Statement Attending Statement Attending MD Statement: examined this patient, discuss w/resident/PA/HEAD TENNIS COACH, agreed w/resident/PA/HEAD TENNIS COACH, discussed with family, reviewed EMR data (avail), discussed with nursing, amended to note Attending Assessment/Plan: Patient seen and examined. Lying comfortably in bed not in any acute distress. Son-in-law present at the bedside. Patient is alert oriented 3. Not in any acute distress. On examination he has no focal motor deficits. Power is 5 out of 5 in all extremities. Sensation is intact globally. Patient however has somewhat finding difficulties. This was confirmed by his son-in-law at the bedside. There is no slurring of his speech. He does have what appears to be very slight right facial droop. Head CT shows no acute stroke. CTA of the neck showed 70% stenosis of the right internal carotid artery. Problems: 1. Stroke; as patient has persistent word finding difficulties although slight. 2. Right internal carotid artery stenosis; 70% 3. Coronary artery disease. 4. Bladder cancer. Plan; -Continue dual antiplatelet which patient was on prior to admission. -Continue lipid-lowering therapy. -Speech therapy evaluation. -Vascular surgery consultation for his internal carotid artery stenosis. -Awaiting evaluation by the neurology service. -Continue current antihypertensive regimen. -Patient will require overnight telemetry to ensure that he does not have paroxysmal atrial fibrillation. His stroke however appears to be secondary to atherosclerotic disease given his right internal carotid artery stenosis. Patient will also require evaluation by the vascular surgery service.
[2018-01-29 15:17] VITALS: BP 126/74
--- NOTE | 2018-01-29 16:02 | Cons- Neurology ---
General Information and HPI Consulting Request Date of Consult: 01/29/18 Requested By: Kari HUMPHREY,Rebekah Reason for Consult: Sudden difficulty speaking, finding words Source of Information: patient, family, old records Exam Limitations: clinical condition History of Present Illness: 78 year old man admitted yesterday when he came home from a chiropractic treatment unable to speak in complete sentences noted immediately by his who suspected a stroke. He had been well earlier in the day when they attended a . No prior transient neurologic symptoms, no associated headache, no report of problems with vision, sensation or power in the extremities. His says he is somewhat better today but not nearly back to his baseline. History of cardiac disease with stenting, on aspirin 81 MG twice daily, Plavix and a statin. Allergies/Medications Allergies: Coded Allergies: No Known Allergies (01/28/18) Home Med List: Aspirin (Adult Aspirin Regimen) 81 MG TABLET.DR 1 TAB PO DAILY heart health ( Reported) Atorvastatin Calcium 20 MG TABLET 1 TAB PO DAILY CARDIAC (Reported) Clopidogrel Bisulfate (Clopidogrel) 75 MG TABLET 1 TAB PO DAILY BLOOD THINNER (Reported) Furosemide 40 MG TABLET 1 TAB PO DAILY CHF (Reported) Gabapentin 300 MG CAPSULE 1 CAP PO TID NEUROPATHY (Reported) Lisinopril 10 MG TABLET 1 TAB PO DAILY HTN (Reported) Nebivolol HCl (Bystolic) 5 MG TABLET 1 TAB PO DAILY CARDIAC (Reported) Prednisone 5 MG TABLET 1 TAB PO DAILY ARTHRITIS (Reported) Current Medications: Current Medications Sig/Macey Start time Last Medication Dose Route Stop Time Status Admin Acetaminophen 650 MG Q4P PRN 01/29 1530 AC PO Aspirin 81 MG DAILY 01/29 1000 AC 01/29 PO 0955 Aspirin 0 .STK-MED ONE 01/29 2128 DC PO Aspirin 0 .STK-MED ONE 01/28 2126 DC PO Aspirin 325 MG ONCE ONE 01/28 2115 DC 01/28 PO 01/28 Atorvastatin Calcium 80 MG ONCE ONE 01/29 0100 DC 01/29 PO 01/29 0101 0110 Atorvastatin Calcium 80 MG 1700 01/28 2330 AC PO Ceftriaxone Sodium 0 .STK-MED ONE 01/29 0952 DC .ROUTE Ceftriaxone Sodium 1,000 MG DAILY 01/29 0800 DC IV Ceftriaxone Sodium 1,000 MG 0800 01/29 0800 DC 01/29 IV 0955 Clopidogrel Bisulfate 75 MG DAILY 01/29 1000 AC 01/29 PO 0955 Furosemide 40 MG DAILY 01/29 1000 AC 01/29 PO 0955 Gabapentin 300 MG TID 01/29 1000 AC 01/29 PO 0955 Heparin Sodium 0 .STK-MED ONE 01/29 1424 DC (Porcine) .ROUTE Heparin Sodium 5,000 UNIT Q8 01/29 0600 AC 01/29 (Porcine) SC 1425 Lisinopril 10 MG DAILY 01/29 1000 AC 01/29 PO 0955 Nebivolol 5 MG DAILY 01/29 1000 AC 01/29 PO 1034 Prednisone 5 MG DAILY 01/29 1000 AC 01/29 PO 0955 Review of Systems Review of Systems: ROS: A complete medical systems review was questioned. No pertinent complaints were found. The patient seemed reluctant to speak or complain. Past History Travel History Traveled to [place] past 21 day No Medical History Neurological: NONE EENT: hearing loss Cardiovascular: CAD, hypertension Respiratory: NONE Gastrointestinal: NONE Hepatic: NONE Musculoskeletal: BACK INJURY Cancer(s): bladder cancer Surgical History Surgical History: CABG, knee replacements Psychosocial History Smoking Status: Former Smoker ETOH Use: occasional use Illicit Drug Use: denies illicit drug use Exam & Diagnostic Data Vital Signs and I&O Vital Signs Date Time Temp Pulse Resp B/P B/P Pulse O2 O2 Flow FiO2 Mean Ox Delivery Rate 01/29 1517 97.8 63 18 126/74 96 01/29 1034 127/72 01/29 0955 127/72 01/29 0722 97.9 57 22 127/72 96 Room Air 01/29 0505 95.8 62 20 109/60 97 Room Air 01/29 0034 97.0 52 20 144/68 99 Room Air 01/28 2255 96.6 50 18 120/64 94 Room Air / 1906 98.6 66 18 130/74 97 Room Air Intake & Output 01/29 1600 0306 0800 01/29 0000 Intake Total Output Total Balance Patient 209 lb Weight Physical Exam: On exam the patient appeared generally well and in no distress, overweight. No carotid bruits and no cardiac murmur. No peripheral edema Mental status: Awake, slow to respond to questions, some difficulty following verbal commands such as on eye movement testing. Dysnomia for thumb, tissue, phone. Named other objects correctly. Some left-right confusion. Funduscopic unremarkable Visual valenzuela full , Eye movements full without nystagmus, pupils midsize equal round and reactive to light. Facial movement normal bilaterally Facial sensation normal bilaterally Hearing okay in casual conversation Uvula elevates midline Tongue protrusion is midline Shoulder shrug symmetric Motor power and tone normal in all 4 extremities Sensation intact to primary modes Tendon reflexes normal and symmetric without pathologic signs Coordination no ataxia Gait [testing deferred] Last 48 Hours of Lab Results: Laboratory Tests 01/29 01/29 01/29 0934 0505 0457 Chemistry Sodium (137 - 145 mmol/L) 135 L Potassium (3.5 - 5.1 mmol/L) 4.8 Chloride (98 - 107 mmol/L) 99 Carbon Dioxide (22 - 30 mmol/L) 27 Anion Gap (5 - 16) 9 BUN (9 - 20 mg/dL) 32 H Creatinine (0.7 - 1.2 mg/dL) 1.0 Estimated GFR (>60 ml/min) > 60 BUN/Creatinine Ratio (7 - 25 %) 32.0 H Troponin I (<0.11 ng/ml) < 0.01 < 0.01 Cancelled Triglycerides (<150 mg/dL) 193 H Cholesterol (< 200 MG/DL) 124 LDL Cholesterol, Calc (65 - 129 mg/dL) 54 L HDL Cholesterol (40 - 60 mg/dL) 32 L Cholesterol/HDL Ratio (0.00 - 4.88 %) 4 Hematology CBC w Diff NO MAN DIFF REQ WBC (4.8 - 10.8 /CUMM) 9.3 RBC (4.70 - 6.10 /CUMM) 4.01 L Hgb (14.0 - 18.0 G/DL) 13.2 L Hct (42 - 52 %) 40.1 L MCV (80.0 - 94.0 FL) 99.9 H MCH (27.0 - 31.0 PG) 32.9 H MCHC (33.0 - 37.0 G/DL) 33.0 RDW (11.5 - 14.5 %) 14.8 H Plt Count (130 - 400 /CUMM) 249 MPV (7.4 - 10.4 FL) 8.1 Gran % (42.2 - 75.2 %) 63.4 Lymphocytes % (20.5 - 51.1 %) 27.4 Monocytes % (1.7 - 9.3 %) 7.3 Eosinophils % (0 - 5 %) 1.5 Basophils % (0.0 - 2.0 %) 0.4 Absolute Granulocytes (1.4 - 6.5 /CUMM) 5.9 Absolute Lymphocytes (1.2 - 3.4 /CUMM) 2.5 Absolute Monocytes (0.10 - 0.60 /CUMM) 0.7 H Absolute Eosinophils (0.0 - 0.7 /CUMM) 0.1 Absolute Basophils (0.0 - 0.2 /CUMM) 0 01/29 01/29 0028 0020 Chemistry Troponin I (<0.11 ng/ml) < 0.01 Urines Urine Color (YEL,AMB,STR) YEL Urine Clarity (CLEAR) CLDY H Urine pH (5.0 - 8.0) 7.0 Ur Specific [place] (1.001 - 1.035) 1.015 Urine Protein (NEG,<30 MG/DL) 30 H Urine Ketones (NEG) NEG Urine Nitrite (NEG) POS H Urine Bilirubin (NEG) NEG Urine Urobilinogen (0.1 - 1.0 EU/dl) 0.2 Ur Leukocyte Esterase (NEG) LARGE H Ur Microscopic SEDIMENT EXAMINED Urine RBC (0 - 5 /HPF) 5-10 H Urine WBC (0 - 2 /HPF) > 75 H Urine Bacteria (NEG/NONE) MANY H Urine Hemoglobin (NEG) SMALL H Urine Glucose (N MG/DL) NEG 01/28 192 Chemistry Sodium (137 - 145 mmol/L) 135 L Potassium (3.5 - 5.1 mmol/L) 4.7 Chloride (98 - 107 mmol/L) 97 L Carbon Dioxide (22 - 30 mmol/L) 27 Anion Gap (5 - 16) 11 BUN (9 - 20 mg/dL) 35 H Creatinine (0.7 - 1.2 mg/dL) 1.2 Estimated GFR (>60 ml/min) 59 L BUN/Creatinine Ratio (7 - 25 %) 29.2 H Glucose (65 - 99 mg/dL) 102 H Calcium (8.4 - 10.2 mg/dL) 9.6 Total Bilirubin (0.2 - 1.3 mg/dL) 0.3 AST (17 - 59 U/L) 17 ALT (21 - 72 U/L) 25 Alkaline Phosphatase (< 127 U/L) 57 Troponin I (<0.11 ng/ml) < 0.01 Total Protein (6.3 - 8.2 g/dL) 6.8 Albumin (3.5 - 5.0 g/dL) 4.1 Globulin (1.9 - 4.2 gm/dL) 2.7 Albumin/Globulin Ratio (1.1 - 2.2 %) 1.5 Coagulation PT (9.4 - 12.5 SEC) 10.9 INR (0.90 - 1.17) 1.00 APTT (25 - 37 SEC) 30 Hematology CBC w Diff NO MAN DIFF REQ WBC (4.8 - 10.8 /CUMM) 8.0 RBC (4.70 - 6.10 /CUMM) 4.05 L Hgb (14.0 - 18.0 G/DL) 13.5 L Hct (42 - 52 %) 40.3 L MCV (80.0 - 94.0 FL) 99.6 H MCH (27.0 - 31.0 PG) 33.3 H MCHC (33.0 - 37.0 G/DL) 33.4 RDW (11.5 - 14.5 %) 14.5 Plt Count (130 - 400 /CUMM) 272 MPV (7.4 - 10.4 FL) 8.3 Gran % (42.2 - 75.2 %) 61.8 Lymphocytes % (20.5 - 51.1 %) 27.1 Monocytes % (1.7 - 9.3 %) 8.9 Eosinophils % (0 - 5 %) 1.4 Basophils % (0.0 - 2.0 %) 0.8 Absolute Granulocytes (1.4 - 6.5 /CUMM) 4.9 Absolute Lymphocytes (1.2 - 3.4 /CUMM) 2.2 Absolute Monocytes (0.10 - 0.60 /CUMM) 0.7 H Absolute Eosinophils (0.0 - 0.7 /CUMM) 0.1 Absolute Basophils (0.0 - 0.2 /CUMM) 0.1 Imaging/Other Studies: CTA neck: There is mixed calcified and noncalcified plaque at the right common carotid artery bifurcation which appears to result in greater than 70% stenosis at the origin of the internal carotid artery. The remainder of the cervical and intracranial right internal carotid artery is patent. There is calcification at the origin of the left internal carotid artery which appears resulting in approximately 30% luminal narrowing. The remainder of the cervical and intracranial left internal carotid artery is patent. Normal appearance of the anterior cerebral and middle cerebral arteries without focal occlusion or stenosis. Normal anterior communicating artery. Normal arborization of the middle cerebral arteries. Both vertebral arteries are widely patent throughout their extracranial cervical course. Normal appearance of the intradural vertebral arteries. Normal appearance of the basilar artery and posterior cerebral arteries. CT Head: Assessment for intracranial hemorrhage is limited in the presence of intravenous contrast. No intracranial mass, extra-axial collection, or midline shift. The fairchild-white matter differentiation is preserved. No pathologic intra-axial enhancement or regional oligemia. No hydrocephalus. There is mild periventricular white matter hypoattenuation consistent with chronic small vessel ischemic disease. Mild volume loss is noted. There is partial opacification of the left sphenoid sinus. The mastoid air cells are well-aerated. Assessment/Plan Assessment: Stroke, left hemispheric, with sudden onset of language impairment and persisting word finding difficulties, reduced fluency and some difficulty with comprehension. No other focal signs on exam. High-grade asymptomatic right ICA stenosis, greater than 70% by CTA No significant stenosis of the left carotid or intracranial system Already on dual antiplatelet therapy and a statin Recommendations: MRI of the brain with diffusion-weighted images Echocardiogram Telemetry rule out PAF Continue current medications for the present Speech therapy consultation Consult Acknowledgment - Thank you for your consult request.
--- NOTE | 2018-01-29 20:34 | ECHOCARDIOGRAM REPORT ---
DEANDRA BOWIE Age: 78 : 1940 Gender: M Exam Date: 01/29/2018 12:24 Exam Location: ER Ht (in): 63 Wt (lb): 228 BSA: 2.20 BP: 127 / 72 Ordering Physician: Nanda Chaney MD Referring Physician: Austin Lou MD Technologist: Kylee Goldberg Room Number: ER-03 Indications: STROKE Rhythm: Sinus Technical Quality: Fair FINDINGS Left Ventricle Normal size left ventricle. Borderline left ventricular wall thickness. No obvious regional wall motion abnormalities. Normal left ventricular ejection fraction visually estimated at 60%. Abnormal relaxation filling pattern of the left ventricle for age (stage 1 diastolic dysfunction). Right Ventricle Normal right ventricular size and function. Right Atrium Normal right atrial size. Left Atrium Normal left atrial size. Mitral Valve Structurally normal mitral valve. No mitral regurgitation. Aortic Valve Aortic valve not well visualized. Mild aortic sclerosis. No aortic valve stenosis or regurgitation. Tricuspid Valve Structurally normal tricuspid valve. Trace tricuspid regurgitation. Right ventricular systolic pressure estimated at 37 mmHg. Pulmonic Valve Pulmonic valve not well visualized. No pulmonic regurgitation. Pericardium No pericardial effusion. Great Vessels Mild aortic dilatation at the level of the sinuses of valsalva (root). CONCLUSIONS Normal size left ventricle. Borderline left ventricular wall thickness. Normal left ventricular ejection fraction visually estimated at 60%. Abnormal relaxation filling pattern of the left ventricle for age (stage 1 diastolic dysfunction). Normal right ventricular size and function. Normal atrial size. Trace tricuspid regurgitation. Right ventricular systolic pressure estimated at 37 mmHg. Mild aortic dilatation at the level of the sinuses of valsalva (root). Austin Lou M.D. (Electronically Signed) Final Date: 29 January 2018 20:33 MEASUREMENTS (Male / Female) Normal Values 2D ECHO LV Diastolic Diameter PLAX 4.5 cm 4.2 - 5.9 / 3.9 - 5.3 cm LV Systolic Diameter PLAX 2.9 cm 2.1 - 4.0 cm LV Fractional Shortening PLAX 35.6 % 25 - 46 % LV Ejection Fraction 2D Teich 65.2 % IVS Diastolic Thickness 0.9 cm LVPW Diastolic Thickness 1.1 cm LV Relative Wall Thickness 0.4 Aortic Root Diameter 4.0 cm LA Systolic Diameter LX 5.1 cm 3.0 - 4.0 / 2.7 - 3.8 cm LA Volume 44.0 cm 18 - 58 / 22 - 52 cm Ascending Aorta Diameter 3.8 cm DOPPLER AV Peak Velocity 137.0 cm/s AV Peak Gradient 7.5 mmHg AV Mean Velocity 95.8 cm/s AV Mean Gradient 4.0 mmHg AV Velocity Time Integral 29.2 cm LVOT Peak Velocity 105.0 cm/s LVOT Peak Gradient 4.4 mmHg LVOT Mean Velocity 75.1 cm/s LVOT Mean Gradient 3.0 mmHg LVOT Velocity Time Integral 21.9 cm Mitral E Point Velocity 58.7 cm/s Mitral A Point Velocity 82.4 cm/s Mitral E to A Ratio 0.7 MV Deceleration Time 201.0 ms TR Peak Velocity 258.0 cm/s TR Peak Gradient 26.6 mmHg Right Atrial Pressure 10.0 mmHg Pulmonary Artery Systolic Pressu 36.6 mmHg Right Ventricular Systolic Press 36.6 mmHg PV Peak Velocity 137.0 cm/s PV Peak Gradient 7.5 mmHg PV Mean Velocity 91.2 cm/s PV Mean Gradient 4.0 mmHg PV Velocity Time Integral 29.2 cm LV E' Lateral Velocity 12.5 cm/s Mitral E to LV E' Lateral Ratio 4.7 LV E' Septal Velocity 5.1 cm/s Mitral E to LV E' Septal Ratio 11.6
[2018-01-29 22:26] VITALS: BP 126/72
[2018-01-30 07:15] VITALS: BP 104/66
[2018-01-30 08:15] LABS: ABSOLUTE BASOPHIL COUNT 0 /CUMM (0.0-0.2); ABSOLUTE EOSINOPHIL COUNT 0.1 /CUMM (0.0-0.7); ABSOLUTE GRANULOCYTE CT 6.9 /CUMM (1.4-6.5); ABSOLUTE MONOCYTE COUNT 0.7 /CUMM (0.10-0.60); BASOPHIL % 0.4 % (0.0-2.0); EOSINOPHIL % 1.5 % (0-5); HEMATOCRIT 43.4 % (42-52); MEAN CORPUSCULAR HGB 33.4 PG (27.0-31.0); MEAN CORPUSCULAR HGB CONC 33.4 G/DL (33.0-37.0); MEAN PLATELET VOLUME 8.4 FL (7.4-10.4); PLATELET COUNT 244 /CUMM (130-400); RBC DISTRIBUTION WIDTH 14.3 % (11.5-14.5); RED BLOOD CELL CT 4.34 /CUMM (4.70-6.10); WHITE BLOOD CELL COUNT 9.8 /CUMM (4.8-10.8)
--- NOTE | 2018-01-30 08:54 | PN- Housestaff ---
Raji Quick 01/30/18 0854: Subjective Follow-up For: Acute infarction, right MCA, right MCA Subjective: Offers no complaints. Sinus bradycardia on monitor overnight. No arrhythmias noted. No weakness numbing. No further episodes of word finding difficulty. Appropriate responses. Review of Systems Constitutional: Reports: see HPI. Objective Last 24 Hrs of Vital Signs/I&O Vital Signs Date Time Temp Pulse Resp B/P B/P Pulse O2 O2 Flow FiO2 Mean Ox Delivery Rate 01/30 0715 98.0 57 18 104/66 99 01/29 2226 97.5 54 18 126/72 96 / 1517 97.8 63 18 126/74 96 / 1034 127/72 / 0955 127/72 Intake & Output 01/30 1600 01/30 0800 01/30 0000 Intake Total 110 220 Output Total 300 Balance 110 -80 Intake, IV 10 Intake, Oral 100 220 Output, Urine 300 Patient 225 lb Weight Physical Exam General Appearance: Alert, Oriented X3 Cardiovascular: Regular Rate, Normal S1, Normal S2 Lungs: Clear to Auscultation, Normal Air Movement Abdomen: Normal Bowel Sounds, Soft Extremities: No Clubbing, No Cyanosis, No Edema Current Medications: Current Medications Sig/Macey Start time Last Medication Dose Route Stop Time Status Admin Acetaminophen 650 MG Q4P PRN 01/29 1530 AC 01/29 PO 1634 Aspirin 81 MG DAILY 01/29 1000 AC 01/29 PO 0955 Atorvastatin Calcium 80 MG 1700 / 2330 AC 01/29 PO 1634 Ceftriaxone Sodium 0 .STK-MED ONE 01/29 0952 DC .ROUTE Ceftriaxone Sodium 1,000 MG 0800 / 0800 DC 03/ IV 0955 Clopidogrel Bisulfate 75 MG DAILY 01/29 1000 AC / PO 0955 Furosemide 40 MG DAILY 01/29 1000 AC / PO 0955 Gabapentin 300 MG TID 01/29 1000 AC / PO 2121 Heparin Sodium 0 .STK-MED ONE 01/29 1424 DC (Porcine) .ROUTE Heparin Sodium 5,000 UNIT Q8 01/29 0600 AC 01/29 (Porcine) SC 1425 Lisinopril 10 MG DAILY 01/29 1000 AC 03/ PO 0955 Nebivolol 5 MG DAILY 01/29 1000 AC / PO 1034 Prednisone 5 MG DAILY 01/29 1000 AC PO 0955 Last 24 Hrs of Lab/Tony Results Last 24 Hrs of Labs/Mics: Laboratory Tests 01/30/18 0720: Anion Gap 13, Estimated GFR > 60, BUN/Creatinine Ratio 28.0 H, CBC w Diff NO MAN DIFF REQ, RBC 4.34 L, MCV 100.0 H, MCH 33.4 H, MCHC 33.4, RDW 14.3, MPV 8.4, Gran % 70.0, Lymphocytes % 20.8, Monocytes % 7.3, Eosinophils % 1.5, Basophils % 0.4, Absolute Granulocytes 6.9 H, Absolute Lymphocytes 2.0, Absolute Monocytes 0.7 H, Absolute Eosinophils 0.1, Absolute Basophils 0 Assessment/Plan Assessment: 78-year-old gentleman with history of cardiac disease status post stent placement on aspirin, Plavix and statin developed inability to speak in complete sentences following a chiropractic treatment, MRI revealing of patchy areas of acute infarction in the right MCA territory. 1. Right MCA territory stroke. Patchy areas of acute infarction in right MCA territory, especially in the setting of right internal carotid artery disease, stenosis greater than 70% requires vascular surgery evaluation. Continue DAPT and high-dose statin. 2. Hypertension. Continue Bystolic, Lasix and lisinopril. Full code. Heparin for DVT prophylaxis. Heart healthy diet. Problem List: 1. TIA (transient ischemic attack) Pain Ratin Pain Location: None Pain Goal: Remain pain free Pain Plan: PRN Tomorrow's Labs & Rationales: Not needed Kari HUMPHREY,Rebekah 01/30/18 1342: Attending MD Review Statement Attending Statement Attending MD Statement: examined this patient, discuss w/resident/PA/TONGUE LINING STITCHER, agreed w/resident/PA/TONGUE LINING STITCHER, discussed with family, reviewed EMR data (avail), discussed with nursing, discussed with case mgmt, amended to note Attending Assessment/Plan: Patient seen and examined. Resting comfortably not in any acute distress. No issues overnight. No new complaints this morning. No events on telemetry monitoring. On examination today he has no gross focal neurologic deficits. His speech is intact. His word finding difficulties appears to have improved compared to yesterday. His stroke was initially presumed to be left hemispheric in nature due to his word finding difficulties. MRI today however shows patchy acute infarction in the right MCA therapy. This is ipsilateral to his right internal carotid origin stenosis. Evaluation by the vascular surgery service appreciated. No emergent intervention is recommended at this time. Patient and family wish to follow-up with the medical care providers at [facility]. Echocardiogram was reviewed. No evidence of cardiac embolus noted. Patient is medically stable to be discharged home today. He will continue on dual antiplatelet therapy. He will continue on his statin therapy.
--- NOTE | 2018-01-30 09:35 | MRI REPORT ---
EXAMINATION: MR BRAIN WITHOUT CONTRAST CLINICAL INFORMATION: 78-year-old man with acute onset of word finding difficulty. COMPARISON: 01/28/[address]/CTA TECHNIQUE: MRI of the brain without contrast was obtained using routine sequences. FINDINGS: There are patchy and somewhat confluent areas of restricted diffusion in the right posterior insula and lateral temporal lobe, consistent with acute areas of infarction in the right MCA territory. There is no susceptibility artifact to suggest hemorrhagic conversion. Findings are superimposed upon moderate chronic microvascular ischemic changes and chronic volume loss. Chronic lacunar infarcts are seen in the right cerebellum and right basal ganglia. No intracranial mass, midline shift, or extra-axial collection is visualized. Normal arterial and venous vascular flow voids are present. A mucus retention cyst is seen in the sphenoid sinus and there is mild mucosal thickening in the ethmoid air cells. The nasal septum is deviated to the right. IMPRESSION: Patchy areas of acute infarction in the right MCA territory.
[2018-01-30 10:01] VITALS: BP 104/66
--- NOTE | 2018-01-30 12:05 | Cons- Vascular Surgery ---
General Information and HPI Consulting Request Date of Consult: 01/30/18 Requested By: Kari HUMPHREY,Rebekah History of Present Illness: 78-year-old gentleman with history of coronary artery disease status post stenting on Plavix aspirin and statins. He presented to the hospital soon after his chiropractic intervention for his back pain. Initial presentation was difficulty with speech and finding words. His speech has much improved since admission. CTA of the neck showed 70% stenosis of the right ICA. It was mild left ICA stenosis. MRI of the brain showed acute patch she infarction of the right hemisphere. Allergies/Medications Allergies: Coded Allergies: No Known Allergies (01/28/18) Home Med List: Aspirin (Adult Aspirin Regimen) 81 MG TABLET.DR 1 TAB PO DAILY heart health ( Reported) Atorvastatin Calcium 20 MG TABLET 1 TAB PO DAILY CARDIAC (Reported) Clopidogrel Bisulfate (Clopidogrel) 75 MG TABLET 1 TAB PO DAILY BLOOD THINNER (Reported) Furosemide 40 MG TABLET 1 TAB PO DAILY CHF (Reported) Gabapentin 300 MG CAPSULE 1 CAP PO TID NEUROPATHY (Reported) Lisinopril 10 MG TABLET 1 TAB PO DAILY HTN (Reported) Nebivolol HCl (Bystolic) 5 MG TABLET 1 TAB PO DAILY CARDIAC (Reported) Prednisone 5 MG TABLET 1 TAB PO DAILY ARTHRITIS (Reported) Past History Medical History Neurological: NONE EENT: hearing loss Cardiovascular: CAD, hypertension Respiratory: NONE Gastrointestinal: NONE Hepatic: NONE Musculoskeletal: BACK INJURY Cancer(s): bladder cancer Surgical History Pertinent Surgical History: CABG, knee replacements Psychosocial History Smoking Status: Former Smoker ETOH Use: occasional use Illicit Drug Use: denies illicit drug use Review of Systems Review of Systems: Patient denies headache, dizziness, cough, palpitation, diarrhea or constipation Exam & Diagnostic Data Vital Signs and I&O Vital Signs Date Time Temp Pulse Resp B/P B/P Pulse O2 O2 Flow FiO2 Mean Ox Delivery Rate 01/30 1001 98.0 57 18 104/66 01/30 1000 98.0 57 18 104/66 01/30 0715 98.0 57 18 104/66 99 01/29 2226 97.5 54 18 126/72 96 01/29 1517 97.8 63 18 126/74 96 Intake & Output 01/30 1600 01/30 0800 01/30 0000 01/29 1600 01/29 0800 01/29 0000 Intake Total 110 220 Output Total 300 Balance 110 -80 Intake, IV 10 Intake, Oral 100 220 Output, Urine 300 Patient 225 lb 209 lb Weight Physical Exam: Patient is alert and oriented 3 Motor and sensory is grossly intact and equal on all extremities Lungs: Clear to auscultation bilaterally Heart: Regular rate and rhythm Abdomen: Soft, nontender nondistended Extremities: Motor and sensory grossly intact, well perfused Assessment/Plan Assessment/Plan 78-year-old man with inability to speak complete sentences after his chiropractic intervention for his back pain. He was found to have patchy acute infarction of the right hemisphere by MRI. CTA of the neck showed greater than 70% stenosis of the right ICA and mild stenosis of the left ICA. There is no evidence of carotid dissection. The patient has a property administrator in the [place] area. The patient and his family's preference is to follow-up with his property administrator and get a referral to a vascular surgeon through him. For now, there is no acute vascular surgery intervention necessary. The right ICA stenosis needs to be addressed and may be cause of the patchy infarction of the right hemisphere. For now, antiplatelet therapy is the mainstay. Timing of intervention for the right ICA is normally about 2 weeks of the initial stroke. Thank you for asking me to be involved in the care of this patient. Consult Acknowledgment - Thank you for your consult request. Attending MD Review Statement Attending Statement Attending MD Statement: examined this patient, discuss w/resident/PA/ADMINISTRATIVE SERVICES DIRECTOR
[2018-01-30] MEDS ORDERED: ATORVASTATIN CA80 M1 PO (13:33)
--- NOTE | 2018-01-30 13:39 | Patient Discharge Instructions ---
Discharge Instructions General Discharge Information You were seen/treated for: Stroke Watch for these problems: Worsening confusion Worsening word finding difficulty Slurred speech Weakness, numbness and tingling. Special Instructions: Please follow up with Cardiology as an outpatient in 1-2 weeks of discharge. Please follow up with Vascular surgery as an outpatient in 1-2 weeks. Please follow up with Neurology and PCP as an outpatient in 1-2 weeks. Please follow up with Speech therapy as an outpatient in 1-2 weeks. Diet Continue normal diet: No Recommended Diet: Heart healthy diet Activity Full Activity/No Limits: No Acute Coronary Syndrome Inclusion Criteria At DC or during hospital stay patient has or had the following: ACS DIAGNOSIS No Discharge Core Measures Meds if any: Prescribed or Continued at Discharge Meds if any: NOT Prescribed or Continued at Discharge Congestive Heart Failure Inclusion Criteria At DC or during hospital stay patient has or had the following: CHF DIAGNOSIS No Discharge Core Measures Meds if any: Prescribed or Continued at Discharge Meds if any: NOT Prescribed or Continued at Discharge Cerebrovascular accident Inclusion Criteria At DC or during hospital stay patient has or had the following: CVA/TIA Diagnosis Yes Discharge Core Measures Meds if any: Prescribed or Continued at Discharge Antithrombotic Yes Statin (required if LDL =>70) Yes Anticoagulant No Meds if any: NOT Prescribed or Continued at Discharge Venous thromboembolism Inclusion Criteria VTE Diagnosis No VTE Type NONE VTE Confirmed by (Test) NONE Discharge Core Measures - Per Current guidelines, there needs to be overlap - treatment for the first 5 days of Warfarin therapy. - If discharged on Warfarin prior to 5 days of - overlap therapy, the patient will need to be - assessed for post discharge needs including - *Post discharge parental anticoagulation - *Warfarin and/or parental anticoagulation education - *Follow up date to check INR post discharge At least 5 days overlap therapy as Inpatient No Meds if any: Prescribed or Continued at Discharge Note: Overlap Therapy is Warfarin and Anticoagulant Meds if any: NOT Prescribed or Continued at Discharge
== END 2018-01-30 14:55 ==
LOC: ERH 18:55 → ERHI 21:40 → ENRESERV 01-29 12:07 → ENTRNSPT 01-29 14:14 → EDTRNSPTSTS 01-29 14:19 → 1NO 01-29 14:30 → CMPTRNSPT 01-29 15:04 → ENPENDDIS 01-30 13:39 → 1NO 01-30 14:55
PROVIDERS: Internal Medicine Endocrinology, Diabetes & Metabolism; Internal Medicine Hematology & Oncology; Physician Assistant Medical
DX: G45.9 Transient cerebral ischemic attack, unspecified (principal); I25.10 Atherosclerotic heart disease of native coronary artery without angina pectoris; I10 Essential (primary) hypertension; Z95.1 Presence of aortocoronary bypass graft; Z79.01 Long term (current) use of anticoagulants; R41.0 Disorientation, unspecified; R47.9 Unspecified speech disturbances
CPT/HCPCS: 70551; 36592; 71045; 81001; 82436; 87086; 92610-GN; 93005; 93010; 93306; 96105-GN; 96372; 96374; 97110-GP; 97116-GP; 97161-GP; G0378; G8978-GP; G8979-GP; G8980-GP; G8996-GN; G8997-GN; G8998-GN; G9162-GN; G9163-GN; J0696; J1644; J3490; J7512